=== PATIENT | female | born 1955 | race Caucasian/White ===

== ENCOUNTER 2017-10-26 17:22 | Emergency (ER) | payer MEDICARE, OTHER ==
[2017-10-26 18:38] VITALS: BP 127/56
--- NOTE | 2017-10-26 19:06 | UC ---
Skin Complaint HPI - HPI Summary HPI Summary: 62 YEAR OLD FEMALE PRESENTS WITH COMPLAINS OF RASH AFTER MOVING INTO A NEW APARTMENT. - History of Current Complaint Chief Complaint: UCSkin Time Seen by Provider: 10/26/17 19:06 Stated Complaint: SKIN COMPLAINT Hx Obtained From: Patient Onset/Duration: Sudden Onset Skin Exposure Onset/Duration: Hours Ago Onset Severity: Moderate Location: Generalized Aggravating Factor(s): Nothing Alleviating Factor(s): Nothing Associated Signs & Symptoms: Positive: Negative - Allergy/Home Medications Allergies/Adverse Reactions: Allergies Allergy/AdvReac Type Severity Reaction Status Date / Time Ketorolac Tromethamine Allergy Rash And Verified 10/26/17 18:31 [From Toradol] Itching Morphine Allergy Vomiting Verified 10/26/17 18:31 Penicillins Allergy Anaphylatic Verified 10/26/17 18:31 Shock Home Medications: Home Medications Meloxicam [Mobic] 15 mg PO DAILY 10/26/17 [History Confirmed 10/26/17] Review of Systems Constitutional: Negative Skin: Rash Eyes: Negative ENT: Negative Respiratory: Negative Cardiovascular: Negative Gastrointestinal: Negative Genitourinary: Negative Motor: Negative Neurovascular: Negative Musculoskeletal: Negative Neurological: Negative Psychological: Negative All Other Systems Reviewed And Are Negative: Yes PMH/Surg Hx/FS Hx/Imm Hx Previously Healthy: Yes - Surgical History Surgical History: Yes Surgery Procedure, Year, and Place: BACK SX X 2. CHOLECYSTECTOMY. R BREAST SX. GANGLION REMOVED FROM TOP OF RIGHT FOOT. B/L SHOULDER SX. B/L ELBOW SX ( LEFT SHOULDER X 2) - Family History Known Family History: Positive: None - Social History Alcohol Use: Rare Substance Use Type: None Smoking Status (MU): Heavy Every Day Tobacco Smoker Type: Cigarettes Amount Used/How Often: 1/2 CIGS PER DAY Length of Time of Smoking/Using Tobacco: APPROX 43 YRS Have You Smoked in the Last Year: Yes Physical Exam Triage Information Reviewed: Yes Vital Signs: Initial Vital Signs Temp 37.3 C 10/26/17 18:34 Pulse 76 10/26/17 18:34 Resp 20 10/26/17 18:34 BP 127/56 10/26/17 18:34 Vital Signs Reviewed: Yes Eye Exam: Normal ENT Exam: Normal Dental Exam: Normal Neck exam: Normal Neck: Positive: 1 Respiratory Exam: Normal Cardiovascular Exam: Normal Abdominal Exam: Normal Musculoskeletal Exam: Normal Neurological Exam: Normal Psychological Exam: Normal Skin: Positive: rashes Course/Dx - Diagnoses Provider Diagnoses: BEDBUGS. SCABIES Discharge - Discharge Plan Condition: Stable Disposition: HOME Prescriptions: Permethrin [Elimite] 5 % EX ONCE #2 tube predniSONE TAB* [Deltasone TAB*] 40 mg PO DAILY #10 tab Sulfamethox/Trimethoprim DS* [Bactrim DS 800/160 TAB*] 1 tab PO BID #14 tab Triamcinolone 0.1% CREAM(NF) [Kenalog Cream 0.1%(NF)] 1 applic TOPICAL TID PRN # 2 tube PRN Reason: Itching Patient Education Materials: Scabies (ED), Bed Bugs (ED) Referrals: Stevie Coker MD [Primary Care Provider] -
== END 2017-10-26 19:18 | disposition home or self-care (01) ==
LOC: UCCORT 17:22
DX: B86 Scabies (principal); F17.210 Nicotine dependence, cigarettes, uncomplicated; Z88.0 Allergy status to penicillin; Z88.5 Allergy status to narcotic agent
CPT/HCPCS: 99212; G0463